=== PATIENT | female | born 1940 | race Caucasian/White ===

== ENCOUNTER 2017-02-01 07:08 | Emergency (ER) | payer MEDICARE, OTHER ==
[~2017-02-01] VITALS: Wt 63.5 kg
== END 2017-02-01 09:05 | disposition home or self-care (01) ==
LOC: ED 07:08
DX: S01.01XA Laceration without foreign body of scalp, initial encounter (principal); Z88.8 Allergy status to other drugs, medicaments and biological substances; W18.09XA Striking against other object with subsequent fall, initial encounter; Y93.89 Activity, other specified; Y92.89 Other specified places as the place of occurrence of the external cause; Y99.8 Other external cause status

== ENCOUNTER 2017-02-07 09:59 | Emergency (ER) | payer MEDICARE, OTHER ==
[~2017-02-07] VITALS: Ht 152.4 cm; Wt 59.0 kg
== END 2017-02-07 11:46 | disposition home or self-care (01) ==
LOC: ED 09:59
DX: Z48.02 Encounter for removal of sutures (principal); Z88.8 Allergy status to other drugs, medicaments and biological substances

== ENCOUNTER 2017-02-12 07:59 | Emergency (ER) | payer MEDICARE, OTHER ==
[~2017-02-12] VITALS: Wt 63.5 kg
== END 2017-02-12 09:18 | disposition home or self-care (01) ==
LOC: ED 07:59
DX: Z00.8 Encounter for other general examination (principal)

== ENCOUNTER 2017-06-23 13:44 | Inpatient (IN) | payer MEDICARE, OTHER ==
[~2017-06-23] VITALS: Ht 152.4 cm; Wt 59.5 kg
[2017-06-23 13:46] VITALS: BP 148/88
[2017-06-23 14:46] LABS: BASO % 0.9 % (0.0-1.0); EOS # 0.1 10*3/uL (0.0-0.4); EOS % 1.5 % (1.0-4.0); HEMOGLOBIN 12.6 g/dl (12.0-16.0); LYMPH # 1.1 10*3/uL (1.3-4.4); LYMPH % 23.5 % (27.0-41.0); MEAN CELL VOLUME 98.5 fl (81.0-99.0); MEAN CORPUSCULAR HGB 31.8 pg (27.0-31.0); MEAN CORPUSCULAR HGB CONC 32.3 g/dl (33.0-37.0); MEAN PLATELET VOLUME 10.5 fl (9.6-12.3); MONO # 0.6 10*3/uL (0.1-1.0); MONO % 12.2 % (3.0-9.0); NEUT # 2.9 10*3/uL (2.3-7.9); NEUT % 61.7 % (47.0-73.0); PLATELET COUNT AUTOMATED 168 10*3/uL (130-400); RED BLOOD COUNT 3.96 10*6/uL (4.10-5.10); WHITE BLOOD COUNT 4.7 10*3/uL (4.8-10.8)
[2017-06-23 14:58] LABS: BUN 18 mg/dl (7-24); CHLORIDE 94 mmol/L (98-107); CREATININE 1.18 mg/dL (0.55-1.02); POTASSIUM 4.3 mmol/L (3.5-5.1); SODIUM 134 mmol/L (136-145)
[2017-06-23 15:02] LABS: ACETAMINOPHEN (TYLENOL) < 2.0 ug/ml (10-30); ETHYL ALCOHOL < 3.0 mg/dl (<3)
[2017-06-23 15:33] LABS: BILIRUBIN NEGATIVE (NEGATIVE); BLOOD NEGATIVE (NEGATIVE); CLARITY SL CLOUDY (CLEAR); COLOR YELLOW (YELLOW); GLUCOSE NEGATIVE (NEGATIVE); KETONE 1+ (NEGATIVE); LEUKO ESTERASE 1+ (NEGATIVE); NITRITE NEGATIVE (NEGATIVE); PH 7.5 (5.0-9.0); SPECIFIC GRAVITY 1.015 (1.005-1.030)
[2017-06-23 15:42] LABS: BACTERIA TRACE; URINE AMPHETAMINES < 1000 (1000ng/ml); URINE BARBITURATES < 200 (200ng/ml); URINE BENZODIAZEPINES < 200 (200ng/ml); URINE CANNABINOIDS (THC) < 50 (50ng/ml); URINE COCAINE < 300 (300ng/ml); URINE METHADONE < 300 (300ng/ml); URINE OPIATES < 300 (300ng/ml)
[2017-06-23 15:43] LABS: URINE PHENCYCLIDINE < 25 (25ng/ml)
[2017-06-23] MEDS ORDERED: DONEPEZIL HCL10 MG PO (17:51)
[2017-06-23] MEDS ORDERED: DIVALPROEX SOD125 MG PO (17:51)
[2017-06-23] MEDS ORDERED: FLORICAL CAPSU1 EACH PO (17:53)
[2017-06-23] MEDS ORDERED: HYDROXYZINE PAM50 MG PO (17:53)
[2017-06-23] MEDS ORDERED: MEMANTINE HCL5 MG PO (17:54)
[2017-06-23] MEDS ORDERED: ZESTORETIC 20-1 EACH PO (17:54)
[2017-06-23] MEDS ORDERED: VITAMIN D-32000 UNIT PO (17:55)
[2017-06-23] MEDS ORDERED: METHIMAZOLE5 M1 PO (17:55)
[2017-06-23 18:10] VITALS: BP 120/66
[2017-06-23] MEDS ORDERED: DEPAKOTE250 MG PO (18:39)
[2017-06-23 20:00] VITALS: BP 128/50
[2017-06-23] MEDS ORDERED: DIVALPROEX SOD125 M1 PO (22:16)
[2017-06-23] MEDS ORDERED: TAPAZOLE5 MG PO (22:17)
[2017-06-23] MEDS ORDERED: RISPERDAL0.5 MG PO (22:17)
[2017-06-23] MEDS ORDERED: VISTARIL25 MG PO (22:18)
[2017-06-24] VITALS: BP 113/50
[2017-06-24 06:15] LABS: BASO % 1.1 % (0.0-1.0); EOS # 0.1 10*3/uL (0.0-0.4); EOS % 2.4 % (1.0-4.0); HEMATOCRIT 36.4 % (37.0-47.0); HEMOGLOBIN 12.1 g/dl (12.0-16.0); LYMPH # 1.3 10*3/uL (1.3-4.4); LYMPH % 33.5 % (27.0-41.0); MEAN CELL VOLUME 98.1 fl (81.0-99.0); MEAN CORPUSCULAR HGB 32.6 pg (27.0-31.0); MEAN CORPUSCULAR HGB CONC 33.2 g/dl (33.0-37.0); MEAN PLATELET VOLUME 10.3 fl (9.6-12.3); MONO # 0.4 10*3/uL (0.1-1.0); MONO % 11.8 % (3.0-9.0); NEUT # 1.9 10*3/uL (2.3-7.9); NEUT % 50.9 % (47.0-73.0); PLATELET COUNT AUTOMATED 142 10*3/uL (130-400); RED BLOOD COUNT 3.71 10*6/uL (4.10-5.10); WHITE BLOOD COUNT 3.7 10*3/uL (4.8-10.8)
[2017-06-24 06:35] LABS: CHLORIDE 99 mmol/L (98-107); SODIUM 136 mmol/L (136-145)
[2017-06-24 06:46] LABS: ALKALINE PHOSPHATASE 83 U/L (45-117); BUN 16 mg/dl (7-24); CREATININE 0.99 mg/dL (0.55-1.02); FREE T4 0.37 ng/dl (0.76-1.46); PHOSPHOROUS 3.4 mg/dL (2.5-4.9); SGOT/AST 27 IU/L (3-35); SGPT/ALT 18 U/L (12-78)
[2017-06-24 08:00] VITALS: BP 114/52
[2017-06-24 08:22] LABS: VITAMIN D, 25-HYDROXY 34.8 ng/mL (30-100)
[2017-06-24 12:00] VITALS: BP 112/56
[2017-06-24 16:00] VITALS: BP 116/61
[2017-06-24 20:00] VITALS: BP 114/57
[2017-06-25] VITALS: BP 120/65
[2017-06-25 08:00] VITALS: BP 134/54
[2017-06-25 12:00] VITALS: BP 140/62
[2017-06-25 16:10] VITALS: BP 144/77
[2017-06-25 20:26] VITALS: BP 129/50
[2017-06-26] VITALS: BP 124/76
[2017-06-26 08:00] VITALS: BP 123/51
[2017-06-26 12:00] VITALS: BP 130/73
[2017-06-26 16:00] VITALS: BP 119/54
[2017-06-26 20:00] VITALS: BP 115/54
[2017-06-27] VITALS: BP 111/52
[2017-06-27 06:47] LABS: EOS # 0.2 10*3/uL (0.0-0.4); EOS % 5.2 % (1.0-4.0); HEMATOCRIT 36.8 % (37.0-47.0); HEMOGLOBIN 11.7 g/dl (12.0-16.0); LYMPH # 1.8 10*3/uL (1.3-4.4); LYMPH % 43.8 % (27.0-41.0); MEAN CELL VOLUME 99.5 fl (81.0-99.0); MEAN CORPUSCULAR HGB 31.6 pg (27.0-31.0); MEAN CORPUSCULAR HGB CONC 31.8 g/dl (33.0-37.0); MONO # 0.5 10*3/uL (0.1-1.0); MONO % 12.1 % (3.0-9.0); NEUT # 1.5 10*3/uL (2.3-7.9); NEUT % 37.9 % (47.0-73.0); PLATELET COUNT AUTOMATED 143 10*3/uL (130-400); RED CELL DISTRI WIDTH 13.8 % (0-14.5); WHITE BLOOD COUNT 4.1 10*3/uL (4.8-10.8)
[2017-06-27 07:12] LABS: CREATININE 1.01 mg/dL (0.55-1.02)
[2017-06-27 08:00] VITALS: BP 112/50
[2017-06-27 12:00] VITALS: BP 120/54
[2017-06-27 16:00] VITALS: BP 126/50
== END 2017-06-27 17:36 | disposition home or self-care (01) | DRG 682 ==
LOC: ED 13:44 → 5E 16:56 → EDHOLD 16:56 → 5E 17:16
PROVIDERS: Emergency Medicine; Internal Medicine Hospice and Palliative Medicine
DX: N17.0 Acute kidney failure with tubular necrosis (principal); G93.41 Metabolic encephalopathy; E44.0 Moderate protein-calorie malnutrition; E87.8 Other disorders of electrolyte and fluid balance, not elsewhere classified; N39.0 Urinary tract infection, site not specified; E87.1 Hypo-osmolality and hyponatremia; E03.2 Hypothyroidism due to medicaments and other exogenous substances; E83.41 Hypermagnesemia; D72.819 Decreased white blood cell count, unspecified; T50.905A Adverse effect of unspecified drugs, medicaments and biological substances, initial encounter; Z79.899 Other long term (current) drug therapy; Y92.89 Other specified places as the place of occurrence of the external cause; Z68.25 Body mass index [BMI] 25.0-25.9, adult

== ENCOUNTER 2017-12-07 12:16 | Emergency (ER) | payer MEDICARE, OTHER ==
[~2017-12-07] VITALS: Ht 152.4 cm; Wt 54.4 kg
[~2017-12-07 12:16] MED LIST: DEPAKOTE250 MG PO; DIVALPROEX SOD125 M1 PO; DIVALPROEX SOD125 MG PO; DONEPEZIL HCL10 MG PO; FLORICAL CAPSU1 EACH PO; HYDROXYZINE PAM50 MG PO; MEMANTINE HCL5 MG PO; METHIMAZOLE5 M1 PO; RISPERDAL0.5 MG PO; TAPAZOLE5 MG PO; VISTARIL25 MG PO; VITAMIN D-32000 UNIT PO; ZESTORETIC 20-1 EACH PO
[2017-12-07 12:39] LABS: BILIRUBIN NEGATIVE (NEGATIVE); BLOOD NEGATIVE (NEGATIVE); CLARITY SL CLOUDY (CLEAR); COLOR YELLOW (YELLOW); GLUCOSE NEGATIVE (NEGATIVE); KETONE TRACE (NEGATIVE); LEUKO ESTERASE NEGATIVE (NEGATIVE); NITRITE NEGATIVE (NEGATIVE); SPECIFIC GRAVITY 1.015 (1.005-1.030)
[2017-12-07 12:59] LABS: BACTERIA 2+; WBC 0-2 wbc/hpf (0-5)
[2017-12-07 14:34] LABS: BASO % 0.3 % (0.0-1.0); EOS % 0.2 % (1.0-4.0); HEMATOCRIT 34.4 % (37.0-47.0); HEMOGLOBIN 10.8 g/dl (12.0-16.0); LYMPH # 1.6 10*3/uL (1.3-4.4); LYMPH % 15.5 % (27.0-41.0); MEAN CELL VOLUME 98.9 fl (81.0-99.0); MEAN CORPUSCULAR HGB CONC 31.4 g/dl (33.0-37.0); MEAN PLATELET VOLUME 9.5 fl (9.6-12.3); MONO # 1.4 10*3/uL (0.1-1.0); MONO % 13.9 % (3.0-9.0); NEUT # 7.2 10*3/uL (2.3-7.9); NEUT % 69.7 % (47.0-73.0); PLATELET COUNT AUTOMATED 262 10*3/uL (130-400); RED BLOOD COUNT 3.48 10*6/uL (4.10-5.10); RED CELL DISTRI WIDTH 12.4 % (0-14.5); WHITE BLOOD COUNT 10.3 10*3/uL (4.8-10.8)
[2017-12-07 14:55] LABS: ALBUMIN 2.6 gm/dl (3.1-4.5); CREATININE 1.11 mg/dL (0.55-1.02); POTASSIUM 4.3 mmol/L (3.5-5.1); TOTAL PROTEIN 6.8 gm/dL (6.4-8.2)
[2017-12-07] MEDS ORDERED: MELOXICAM7.5 MG PO (17:42)
[2017-12-07] MEDS ORDERED: VOLTAREN100 GM T (17:43)
== END 2017-12-07 18:02 | disposition home health service (06) ==
LOC: ED 12:16
PROVIDERS: Emergency Medicine
DX: R41.82 Altered mental status, unspecified (principal); E86.0 Dehydration; M25.561 Pain in right knee; M25.562 Pain in left knee; I10 Essential (primary) hypertension; E03.2 Hypothyroidism due to medicaments and other exogenous substances; Z79.899 Other long term (current) drug therapy

== ENCOUNTER 2017-12-07 17:27 | Inpatient (IN) | payer MEDICARE, OTHER ==
[~2017-12-07] VITALS: Ht 154.9 cm; Wt 61.7 kg
--- NOTE | ~2017-12-07 | EKG ---
[place], [place] ELECTROCARDIOGRAM REPORT NAME: SOHAM FITZGERALD UNIT #: [id number] ROOM: [facility] DOCTOR: VALENTIN DRAFT REPORT BIRTHDATE: [birth year] [facility] Test Date: 2017-12-17 Test Time: 18:51:26 Pat Name: SOHAM FITZGERALD Department: Room: [facility] 1 Gender: F Archives Specialist: : 1940 Requested By: ANDREW ESTEBAN Order Number: [id number] Reading MD: Measurements Intervals Connell Rate: 120 P: 14 MS: 118 QRS: 60 QRSD: 71 T: 41 QT: 316 QTc: 447 Interpretive Statements Sinus tachycardia Abnormal R-wave progression, early transition Baseline wander in lead(s) V2,V4 No previous ECG available for comparison CM:EKGRPT:ELECTROCARDIOGRAM REPORT 1851 1719 ANDREW [place] DRAFT REPORT ANDREW ESTEBAN DO
--- NOTE | ~2017-12-07 | PR ---
[place], [place] PROGRESS NOTE NAME: SOHAM FITZGERALD [facility] #: [id number] UNIT #: [id number] ROOM: 315 DOCTOR: PACO GUAN MD BIRTHDATE: [birth year] DOS: 12/16/2017 CHIEF COMPLAINT: "Oh honey I am cold, can I have a blanket." SUMMARY OF THE VISIT: The patient was interviewed as she reclined in a Kandi chair in the dining area or waiting breakfast. She smiled upon approach and told me that she was cold and requested a blanket. She was actually spontaneous and bright. There was no agitation, no terseness or aggression. She seemed alert. There is no sedation, somnolence, extrapyramidal symptoms or tardive dyskinesia. MENTAL STATUS: She is alert and oriented to person, possibly place, not to time. Mood does seem to be strongly trending towards euthymia. Affect is more appropriate. There is no sofia, hypomania or psychosis. Short term memory continues to be problematic. Otherwise, she is intact. PLAN: Her valproic acid level is therapeutic at 66.5, so I will maintain the current dose. Maintain the current doses of Namenda and Exelon patch. We will plan to return to the least restrictive environment when psychiatrically stable. PACO GUAN MD CM:PNTRANS [id number] PACO GUAN MD 12/16/17 1523 interface
--- NOTE | ~2017-12-07 | PR ---
[place], [place] PROGRESS NOTE NAME: SOHAM FITZGERALD [facility] #: [id number] UNIT #: [id number] ROOM: 315 DOCTOR: GALE GARNETT DPM BIRTHDATE: [birth year] DOS: 12/11/2017 SUBJECTIVE: This patient is seen today for followup of a blister on her left heel. They have been offloading the area and doing daily dressing changes. The patient really does not answer questions appropriately at this time. OBJECTIVE: EXTREMITIES: Pedal pulses are mildly decreased. Skin temperature is cool to toes. CFT is mildly delayed. The sensation appears diminished bilaterally. Left heel blister is drying up nicely. It is about 2-3 cm blister. No fluid is noted at this time. No surrounding edema or erythema. No pain noted to palpation at this time. ASSESSMENT: Improving blister, left heel. PLAN: Continue with daily dressing changes. Continue with offloading with the boots. Recommend following with the patient in a few days' time. Continue with current treatment plan. GALE GARNETT DPM CM:PNTRANS 1227 0029 GALE GARNETT DPM 12/12/17 0027 interface
--- NOTE | ~2017-12-07 | PN ---
[place], [place] PROGRESS NOTE NAME: SOHAM FITZGERALD UNIT #: [id number] ROOM: 315 DOCTOR: PACO GUAN MD BIRTHDATE: [birth year] DATE: 12/13/[address] GUAN 01/11/18 1002: Above note reviewed. Agree with observations, recommendations, and overall treatment plan. PACO GUAN MD CM:PNTRANS 1002 0758 PACO GUAN MD 01/17/18 0758 KELLI WOO MIS.LLR
--- NOTE | ~2017-12-07 | DS ---
[place], [place] DISCHARGE SUMMARY NAME: SOHAM FITZGERALD [facility] #: [id number] UNIT #: [id number] ROOM: 315 DOCTOR: PACO GUAN MD BIRTHDATE: [birth year] DOS: 12/17/2017 CHIEF COMPLAINT: "Hi there." HISTORY OF PRESENT ILLNESS: This is a 77-year-old white female with a lengthy history of dementia who was admitted to the [facility] with an acute mental status change. The patient has a history of being very repetitive and chanting. She also has been increasingly more agitated and combative while at [facility]. Her confusion likewise has worsened over the last several weeks and she is having very noticeable visual and auditory hallucinations. She was admitted to the [facility] to further rule out organic factors and attempt to stabilize on a medication determining whether or not a readmission to [facility] was the least restrictive environment to which she could return. SUMMARY OF HOSPITAL COURSE: The patient was admitted to the unit where she was found to be somewhat dehydrated upon admission and was hydrated to see if this would improve her mental status. Additionally, her Aricept was discontinued in lieu of Exelon patch 4.6 mg a day and Namenda was added to augment the effectiveness of the cholinesterase inhibitor. She was maintained on Depakote 250 t.i.d. and a repeat valproic acid level towards the latter part of her stay was therapeutic at 66.5. The patient was gradually improving and her mental status was clearing over time until she did have some significant medical problems to which the hospitalists felt warranted a transfer to the medical unit for more intensive monitoring. The patient was discharged then to the medical floor on 12/17/2017 for further treatment. MENTAL STATUS AT DISCHARGE: She was alert and oriented. She was pleasant and cooperative that morning during my interview. She voiced no complaints. Her responses still tended to be short and simple, but more to the point than upon her initial admission. There were no symptoms suggestive of depression. There was no hypomania, sofia or gross psychotic symptoms. Short-term memory still continued to be problematic at that time. DIAGNOSES UPON DISCHARGE: Intermittent explosive disorder and Alzheimer's dementia. DISPOSITION: The patient was trending towards the psychiatric stabilization, but had ongoing medical issues that warranted transfer to the medical floor at that time. [place], [place] DISCHARGE SUMMARY NAME: SOHAM FITZGERALD UNIT #: [id number] ROOM: 315 DOCTOR: PACO GUAN MD BIRTHDATE: [birth year] PACO GUAN MD CM:XAVI 1010 1339 PACO GUAN MD 01/11/18 1336 interface
--- NOTE | ~2017-12-07 | PR ---
[place], [place] PROGRESS NOTE [id number] UNIT #: [id number] ROOM: 315 DOCTOR: PACO GUAN MD BIRTHDATE: [birth year] DOS: 12/15/2017 CHIEF COMPLAINT: "Oh good morning." SUMMARY OF THE VISIT: The patient was interviewed as she was sitting in the dining area. She had eaten some of her breakfast with assistance. She engaged readily in conversation, most of which was rather superficial, but bright. She notes no other issues. She denies pain or discomfort and reports that she slept well. MENTAL STATUS: She is alert and oriented to person, uncertain place, certainly not time. Mood does seem to be improving. Affect is more appropriate. There is no sofia, hypomania or psychosis. Short term memory continues to be problematic. PLAN: I will check a valproic acid level in the morning to ensure that it is therapeutic. Engage in individual and webber milieu activity, returning then to the least restrictive environment when psychiatrically stable. PACO GUAN MD CM:PNTRANS 0933 PACO GUAN MD 12/15/17 0931 interface
--- NOTE | ~2017-12-07 | PR ---
[place], [place] PROGRESS NOTE NAME: SOHAM FITZGERALD [facility] #: [id number] UNIT #: [id number] ROOM: 315 DOCTOR: PACO GUAN MD BIRTHDATE: [birth year] DOS: 12/11/2017 INTERVAL NOTE CHIEF COMPLAINT: "I want to go home." SUMMARY OF THE VISIT: The patient was interviewed as she was sitting in the group therapy room with a towel on her head. She engaged in conversation with me and was fixated on going home. When I told her that we were working on this as a gradual process, she nodded and was pleasant towards me. She offered no other complaints. MENTAL STATUS: She remains alert and oriented to person, possibly place, not to time. Mood does seem to be more euthymic. Affect is more appropriate. There is no sofia or hypomania. No gross psychotic symptoms. Short term memory continues to be problematic. PLAN: I will increase her Namenda to 10 mg twice daily maximizing out its potential benefit. Maintain Exelon at 9.5 mg topically daily with the plan to increase this later. PACO GUAN MD CM:PNTRANS 1050 2217 PACO GUAN MD 01/12/18 0738 interface
--- NOTE | ~2017-12-07 | PR ---
[place], [place] PROGRESS NOTE [id number] UNIT #: [id number] ROOM: 315 DOCTOR: PACO GUAN MD BIRTHDATE: [birth year] DOS: 12/17/2017 CHIEF COMPLAINT: "Morning." SUMMARY OF THE VISIT: The patient was interviewed as she was reclining in her chair in the dining area. She was watching television. She engaged readily in conversation and reports to me that she slept well and had a good breakfast. She could not tell me what she had for breakfast nor could she tell me how long she has been here. She was pleasantly confused, however. MENTAL STATUS: She is alert and oriented to person, possibly place, although it is doubtful, not to time. Mood does seem to be more euthymic. Affect more appropriate. There is no sofia, hypomania or psychosis. Short-term memory continues to have significant gaps. PLAN: I will maintain her current psychotropic regimen, continue to engage in individual and webber milieu activity. PACO GUAN MD CM:PNTRANS 0934 PACO GUAN MD 12/17/17 2212 interface
--- NOTE | ~2017-12-07 | PN ---
[place], [place] PROGRESS NOTE NAME: SOHAM FITZGERALD UNIT #: [id number] ROOM: 315 DOCTOR: PACO GUAN MD BIRTHDATE: [birth year] DATE: 12/12/[address] GUAN 01/11/18 1002: Above note reviewed. Agree with observations, recommendations, and overall treatment plan. PACO GUAN MD CM:PNTRANS 1002 0758 PACO GUAN MD 01/17/18 0758 KELLI WOO MIS.LLR
--- NOTE | ~2017-12-07 | PN ---
[place], [place] PROGRESS NOTE NAME: SOHAM FITZGERALD UNIT #: [id number] ROOM: 315 DOCTOR: PACO GUAN MD BIRTHDATE: [birth year] DATE: 12/14/[address] GUAN 01/11/18 1002: Above note reviewed. Agree with observations, recommendations, and overall treatment plan. PACO GUAN MD CM:PNTRANS 1002 0758 PACO GUAN MD 01/17/18 0759 KELLI WOO MIS.LLR
[2017-12-07] MEDS ORDERED: MELOXICAM7.5 MG PO (17:42)
[2017-12-07] MEDS ORDERED: VOLTAREN100 GM T (17:43)
[2017-12-07 18:18] VITALS: BP 138/76; BP 140/76
[2017-12-07 20:11] VITALS: BP 108/72
[2017-12-08 06:49] LABS: BASO % 0.2 % (0.0-1.0); EOS # 0.1 10*3/uL (0.0-0.4); EOS % 0.6 % (1.0-4.0); HEMATOCRIT 32.3 % (37.0-47.0); HEMOGLOBIN 10.1 g/dl (12.0-16.0); LYMPH # 2.3 10*3/uL (1.3-4.4); LYMPH % 27.7 % (27.0-41.0); MEAN CELL VOLUME 99.4 fl (81.0-99.0); MEAN CORPUSCULAR HGB 31.1 pg (27.0-31.0); MEAN CORPUSCULAR HGB CONC 31.3 g/dl (33.0-37.0); MEAN PLATELET VOLUME 9.2 fl (9.6-12.3); MONO # 1.3 10*3/uL (0.1-1.0); MONO % 14.9 % (3.0-9.0); NEUT # 4.7 10*3/uL (2.3-7.9); NEUT % 56.1 % (47.0-73.0); PLATELET COUNT AUTOMATED 232 10*3/uL (130-400); RED BLOOD COUNT 3.25 10*6/uL (4.10-5.10); RED CELL DISTRI WIDTH 12.5 % (0-14.5); WHITE BLOOD COUNT 8.4 10*3/uL (4.8-10.8)
[2017-12-08 07:19] LABS: CHLORIDE 108 mmol/L (98-107); POTASSIUM 3.9 mmol/L (3.5-5.1); SODIUM 146 mmol/L (136-145)
[2017-12-08 07:36] LABS: ALBUMIN 2.3 gm/dl (3.1-4.5); ALKALINE PHOSPHATASE 70 U/L (45-117); BUN 38 mg/dl (7-24); CHOLESTEROL 108 mg/dL (<200); CREATININE 1.06 mg/dL (0.55-1.02); FREE T4 2.48 ng/dl (0.76-1.46); HDL CHOLESTEROL 27 mg/dl (40-60); LDL CHOLESTEROL 58 mg/dL (9-159); SGOT/AST 32 IU/L (3-35); SGPT/ALT 25 U/L (12-78); TOTAL PROTEIN 6.5 gm/dL (6.4-8.2); TRIGLYCERIDES 114 mg/dl (<150); VLDL CHOLESTEROL 23 mg/dL (6-40)
[2017-12-08 07:46] LABS: THYROID STIM HORMONE (HS) < 0.005 uIU/ml (0.358-4.75)
[2017-12-08 07:58] VITALS: BP 115/76
[2017-12-08 08:55] LABS: VITAMIN D, 25-HYDROXY 63.3 ng/mL (30-100)
[2017-12-08 19:54] VITALS: BP 116/74
[2017-12-09] MEDS ORDERED: METHIMAZOLE5 M1 PO (08:01)
[2017-12-09 08:38] VITALS: BP 130/78
[2017-12-09 19:56] VITALS: BP 127/61
[2017-12-10 07:50] VITALS: BP 118/64
[2017-12-10 19:53] VITALS: BP 121/67
[2017-12-11 08:13] VITALS: BP 114/58
[2017-12-11 20:14] VITALS: BP 112/62
[2017-12-12 08:06] VITALS: BP 121/69
[2017-12-12 19:49] VITALS: BP 120/70
[2017-12-13 07:36] VITALS: BP 114/62
[2017-12-13 19:41] VITALS: BP 108/55
[2017-12-14 07:32] VITALS: BP 115/84
[2017-12-14 19:52] VITALS: BP 121/72
[2017-12-15 07:08] VITALS: BP 122/70
[2017-12-15 20:00] VITALS: BP 139/72
[2017-12-16 07:55] VITALS: BP 123/74
[2017-12-16 19:44] VITALS: BP 117/70
[2017-12-17 07:48] VITALS: BP 136/82
[2017-12-17] MEDS ORDERED: REMERON15 M2 PO (19:12)
[2017-12-17] MEDS ORDERED: NAMENDA10 MG PO (19:12)
[2017-12-17] MEDS ORDERED: EXELON13.3 MG/21 TD (19:12)
[2017-12-17 19:16] LABS: HEMATOCRIT 36.8 % (37.0-47.0); HEMOGLOBIN 11.4 g/dl (12.0-16.0); MEAN CELL VOLUME 100.3 fl (81.0-99.0); MEAN CORPUSCULAR HGB 31.1 pg (27.0-31.0); MEAN PLATELET VOLUME 10.9 fl (9.6-12.3); PLATELET COUNT AUTOMATED 211 10*3/uL (130-400); RED BLOOD COUNT 3.67 10*6/uL (4.10-5.10); RED CELL DISTRI WIDTH 13.3 % (0-14.5); WHITE BLOOD COUNT 11.8 10*3/uL (4.8-10.8)
[2017-12-17 19:32] LABS: ALBUMIN 2.6 gm/dl (3.1-4.5); CREATININE 1.66 mg/dL (0.55-1.02); POTASSIUM 4.5 mmol/L (3.5-5.1); TOTAL PROTEIN 6.8 gm/dL (6.4-8.2); TROPONIN I 0.031 ng/ml (<0.045)
[2017-12-17 19:36] LABS: PLATELET SUFFICIENCY NORMAL (NORMAL); TOTAL CELLS COUNTED 100 #CELLS
== END 2017-12-17 19:18 | disposition still patient (30) | DRG 883 ==
LOC: 3N 17:27
PROVIDERS: Family Medicine; Psychiatry & Neurology Psychiatry
DX: F63.81 Intermittent explosive disorder (principal); E43 Unspecified severe protein-calorie malnutrition; F23 Brief psychotic disorder; F03.91 Unspecified dementia, unspecified severity, with behavioral disturbance; D72.810 Lymphocytopenia; R73.9 Hyperglycemia, unspecified; E83.41 Hypermagnesemia; E05.90 Thyrotoxicosis, unspecified without thyrotoxic crisis or storm; I10 Essential (primary) hypertension; M21.619 Bunion of unspecified foot; F41.9 Anxiety disorder, unspecified; E86.0 Dehydration; F32.9 Major depressive disorder, single episode, unspecified; R00.0 Tachycardia, unspecified; D64.9 Anemia, unspecified; S90.822A Blister (nonthermal), left foot, initial encounter; X58.XXXA Exposure to other specified factors, initial encounter; Y93.89 Activity, other specified; Y92.89 Other specified places as the place of occurrence of the external cause; Y99.8 Other external cause status; Z79.899 Other long term (current) drug therapy; Z68.21 Body mass index [BMI] 21.0-21.9, adult

== ENCOUNTER 2017-12-17 19:13 | Inpatient (IN) | payer MEDICARE, OTHER ==
[~2017-12-17] VITALS: Ht 162.6 cm; Wt 57.3 kg
--- NOTE | ~2017-12-17 | CON ---
[place], [place] REPORT OF CONSULTATION NAME: SOHAM FITZGERALD [facility] #: [id number] UNIT #: [id number] ROOM: 421 DOCTOR: GALE GARNETT DPM BIRTHDATE: [birth year] DOS: 12/18/2017 SUBJECTIVE: This patient is seen for evaluation of a blistered area on the left heel as well as some superficial open areas on both feet. The patient was admitted to ICU. PAST MEDICAL HISTORY: Includes dehydration, hyperglycemia, normocytic anemia, altered mental status, anxiety, psychotic disorder, dementia, depression, hypertension. ALLERGIES: No known drug allergies are noted. HOME MEDICATIONS: Include vitamin D, Voltaren, Depakote, Zestoretic, meloxicam, Namenda, Remeron, Exelon and calcium supplement. OBJECTIVE: EXTREMITIES: Upon lower extremity physical examination, pedal pulses are barely palpable. Skin temperature is warm. CFT is 2 seconds to all digits. Sensation is minimally decreased bilaterally. There is a dry area of blister on the left plantar posterior heel, which shows no signs of infection. Superficial open areas noted at the first MPJ bilaterally. No purulent drainage or malodor, no signs of any active infection or cellulitis. ASSESSMENT: History of blister, left heel and ulcerations, bilateral feet. PLAN: Consultation is performed. Continue with local wound care and offloading. Continue with conservative management. I will continue to follow while the patient is in the hospital for evaluation of the wounds. Thank you for the opportunity to take part in the care of this patient. GALE GARNETT DPM CM:CONSTR:REPORT OF CONSULTATION 1219 01/09/18 0017 interface
[~2017-12-17 19:13] MED LIST changes: +EXELON13.3 MG/21 TD; +MELOXICAM7.5 MG PO; +NAMENDA10 MG PO; +REMERON15 M2 PO; +VOLTAREN100 GM T
[2017-12-17 19:30] VITALS: BP 90/60
[2017-12-18] VITALS: BP 80/52
[2017-12-18 04:00] VITALS: BP 83/38
[2017-12-18 05:39] LABS: INTERNATIONAL NORM RATIO 1.1 (2.0-3.5)
[2017-12-18 05:48] LABS: BASO % 0.3 % (0.0-1.0); EOS # 0.1 10*3/uL (0.0-0.4); EOS % 1.2 % (1.0-4.0); HEMOGLOBIN 9.5 g/dl (12.0-16.0); LYMPH # 2.7 10*3/uL (1.3-4.4); MEAN CORPUSCULAR HGB 31.3 pg (27.0-31.0); MEAN CORPUSCULAR HGB CONC 30.6 g/dl (33.0-37.0); MEAN PLATELET VOLUME 11.1 fl (9.6-12.3); MONO # 1.1 10*3/uL (0.1-1.0); MONO % 12.3 % (3.0-9.0); NEUT # 5.3 10*3/uL (2.3-7.9); NEUT % 56.8 % (47.0-73.0); PLATELET COUNT AUTOMATED 157 10*3/uL (130-400); RED BLOOD COUNT 3.04 10*6/uL (4.10-5.10); RED CELL DISTRI WIDTH 13.6 % (0-14.5); WHITE BLOOD COUNT 9.3 10*3/uL (4.8-10.8)
[2017-12-18 06:01] LABS: BUN 58 mg/dl (7-24); CHLORIDE 117 mmol/L (98-107); CHOLESTEROL 98 mg/dL (<200); CREATININE 1.32 mg/dL (0.55-1.02); PHOSPHOROUS 2.8 mg/dL (2.5-4.9); SGOT/AST 24 IU/L (3-35); SGPT/ALT 16 U/L (12-78); TOTAL PROTEIN 5.3 gm/dL (6.4-8.2); TRIGLYCERIDES 138 mg/dl (<150); VLDL CHOLESTEROL 28 mg/dL (6-40)
[2017-12-18 06:08] LABS: ALKALINE PHOSPHATASE 59 U/L (45-117); FREE T4 1.81 ng/dl (0.76-1.46); HDL CHOLESTEROL 23 mg/dl (40-60); LDL CHOLESTEROL 47 mg/dL (9-159)
[2017-12-18 07:02] LABS: SODIUM 150 mmol/L (136-145)
[2017-12-18 07:04] LABS: POTASSIUM 3.5 mmol/L (3.5-5.1); THYROID STIM HORMONE (HS) < 0.005 uIU/ml (0.358-4.75)
[2017-12-18 08:00] VITALS: BP 86/64
[2017-12-18 12:00] VITALS: BP 100/47
[2017-12-18 16:00] VITALS: BP 130/74
[2017-12-18 20:00] VITALS: BP 118/64
[2017-12-19] VITALS: BP 132/67
[2017-12-19 06:03] LABS: BASO % 0.5 % (0.0-1.0); EOS # 0.1 10*3/uL (0.0-0.4); EOS % 1.1 % (1.0-4.0); HEMATOCRIT 31.7 % (37.0-47.0); HEMOGLOBIN 9.6 g/dl (12.0-16.0); MEAN CELL VOLUME 102.3 fl (81.0-99.0); MEAN CORPUSCULAR HGB CONC 30.3 g/dl (33.0-37.0); MEAN PLATELET VOLUME 10.5 fl (9.6-12.3); MONO # 1.2 10*3/uL (0.1-1.0); MONO % 13.6 % (3.0-9.0); NEUT # 5.5 10*3/uL (2.3-7.9); NEUT % 62.3 % (47.0-73.0); PLATELET COUNT AUTOMATED 172 10*3/uL (130-400); RED CELL DISTRI WIDTH 13.3 % (0-14.5); WHITE BLOOD COUNT 8.9 10*3/uL (4.8-10.8)
[2017-12-19 06:17] LABS: ALKALINE PHOSPHATASE 67 U/L (45-117); CHLORIDE 114 mmol/L (98-107); CREATININE 0.86 mg/dL (0.55-1.02); POTASSIUM 3.8 mmol/L (3.5-5.1); SGOT/AST 22 IU/L (3-35); SGPT/ALT 16 U/L (12-78); SODIUM 147 mmol/L (136-145); TOTAL PROTEIN 5.4 gm/dL (6.4-8.2)
[2017-12-19 06:20] LABS: BUN 44 mg/dl (7-24)
[2017-12-19 08:00] VITALS: BP 110/57
[2017-12-19 12:00] VITALS: BP 159/58
[2017-12-19 16:00] VITALS: BP 108/62
[2017-12-19 18:26] LABS: BASO % 0.4 % (0.0-1.0); EOS # 0.1 10*3/uL (0.0-0.4); EOS % 1.1 % (1.0-4.0); HEMATOCRIT 31.8 % (37.0-47.0); HEMOGLOBIN 9.9 g/dl (12.0-16.0); LYMPH % 24.1 % (27.0-41.0); MEAN CELL VOLUME 101.3 fl (81.0-99.0); MEAN CORPUSCULAR HGB 31.5 pg (27.0-31.0); MEAN CORPUSCULAR HGB CONC 31.1 g/dl (33.0-37.0); MEAN PLATELET VOLUME 10.5 fl (9.6-12.3); MONO # 1.2 10*3/uL (0.1-1.0); MONO % 14.2 % (3.0-9.0); NEUT % 59.8 % (47.0-73.0); PLATELET COUNT AUTOMATED 174 10*3/uL (130-400); RED BLOOD COUNT 3.14 10*6/uL (4.10-5.10); RED CELL DISTRI WIDTH 13.2 % (0-14.5); WHITE BLOOD COUNT 8.3 10*3/uL (4.8-10.8)
[2017-12-19 18:40] LABS: ALBUMIN 2.1 gm/dl (3.1-4.5); ALKALINE PHOSPHATASE 68 U/L (45-117); CHLORIDE 113 mmol/L (98-107); CREATININE 0.76 mg/dL (0.55-1.02); POTASSIUM 3.5 mmol/L (3.5-5.1); SGOT/AST 24 IU/L (3-35); SGPT/ALT 19 U/L (12-78); SODIUM 146 mmol/L (136-145); TOTAL PROTEIN 5.9 gm/dL (6.4-8.2)
[2017-12-19 18:46] LABS: BUN 32 mg/dl (7-24)
[2017-12-19 20:00] VITALS: BP 142/80
[2017-12-20] VITALS: BP 157/78
[2017-12-20 08:00] VITALS: BP 151/78
[2017-12-20 12:00] VITALS: BP 101/71
[2017-12-20] MEDS ORDERED: TYLENOL325 M2 PO (12:42)
[2017-12-20] MEDS ORDERED: HYDROCODONE-AC1 EAC1 PO (12:42)
== END 2017-12-20 15:30 | disposition other institution (70) | DRG 314 ==
LOC: ICCU 19:13 → 4E 12-18 14:36
PROVIDERS: Family Medicine; Registered Nurse
DX: I95.9 Hypotension, unspecified (principal); G93.41 Metabolic encephalopathy; L89.894 Pressure ulcer of other site, stage 4; E43 Unspecified severe protein-calorie malnutrition; N17.9 Acute kidney failure, unspecified; N18.9 Chronic kidney disease, unspecified; Z66 Do not resuscitate; Z51.5 Encounter for palliative care; E86.0 Dehydration; R00.0 Tachycardia, unspecified; D64.9 Anemia, unspecified; E05.90 Thyrotoxicosis, unspecified without thyrotoxic crisis or storm; F32.9 Major depressive disorder, single episode, unspecified; F41.9 Anxiety disorder, unspecified; E55.9 Vitamin D deficiency, unspecified; I10 Essential (primary) hypertension; R73.9 Hyperglycemia, unspecified; G30.9 Alzheimer's disease, unspecified; F02.80 Dementia in other diseases classified elsewhere, unspecified severity, without behavioral disturbance, psychotic disturbance, mood disturbance, and anxiety; Z79.899 Other long term (current) drug therapy; Z68.21 Body mass index [BMI] 21.0-21.9, adult